=== PATIENT | male | born 1960 | race Caucasian/White ===

== ENCOUNTER 2019-10-03 14:09 | Emergency (ER) | payer OTHER, BC ==
[2019-10-03] MEDS ORDERED: Diphtheria,Pertussis(Acell),Tetanus Vaccine 0.5 ML SDV IM ONE (15:24)
--- NOTE | 2019-10-03 15:35 | CR ---
DATE OF SERVICE: 10/03/2019 CLINICAL DATA: Laceration Left foot: No priors. No acute fracture or dislocation. Minimal osteoarthritic changes involving multiple joints. No lytic or blastic bone lesions. MTDD
--- NOTE | 2019-10-03 15:40 | EDM.PDOC ---
ED HPI GENERAL MEDICAL PROBLEM - General Chief Complaint: Laceration Stated Complaint: LACERATION LEFT FOOT Time Seen by Provider: 10/03/19 14:30 Source of Information: Reports: Patient History Limitations: Reports: No Limitations - History of Present Illness INITIAL COMMENTS - FREE TEXT/NARRATIVE: Pt was chopping wood and cut left great toe with an axe through his shoe. Has l aceration. No loss of function or sensation Onset: Today Onset Date: 10/03/19 Onset Time: 13:00 Duration: Hour(s): (2 hrs) Location: Reports: Lower Extremity, Left Quality: Reports: Throbbing Improves with: Reports: Rest Worsens with: Reports: Movement Associated Symptoms: Reports: No Other Symptoms - Related Data Allergies Allergy/AdvReac Type Severity Reaction Status Date / Time No Known Allergies Allergy Verified 03/09/14 15:08 Home Meds: Home Meds Ciprofloxacin HCl [Cipro] 500 mg PO BID 10 Days #20 tablet 10/03/19 [Rx] Review of Systems - Review of Systems Review Of Systems: See Below Constitutional: Reports: No Symptoms Eyes: Reports: No Symptoms Ears: Reports: No Symptoms Nose: Reports: No Symptoms Respiratory: Reports: No Symptoms Cardiovascular: Reports: No Symptoms GI/Abdominal: Reports: No Symptoms Musculoskeletal: Reports: Foot Pain Skin: Reports: Other (lateration to medial aspect of his great toe) Neurological: Reports: No Symptoms Psychiatric: Reports: No Symptoms ED EXAM, GENERAL - Physical Exam Exam: See Below Exam Limited By: No Limitations General Appearance: Alert, WD/WN, No Apparent Distress Nose: Normal Inspection Throat/Mouth: Normal Inspection Head: Atraumatic Neck: Normal Inspection, Supple, Non-Tender, Full Range of Motion Respiratory/Chest: No Respiratory Distress, Lungs Clear, Normal Breath Sounds Cardiovascular: Normal Peripheral Pulses, Regular Rate, Rhythm Extremities: Other (Left great toe medial aspect 4 cm laceration, no tendon laceration. Full ROM, good sensation) Skin Exam: Wound/Incision (4 cm left medial great toe laceration) ED TRAUMA EXTREMITY PROCEDURES - Laceration/Wound Repair Left Lower Toe - Great Lac/Wound Length In cm: 4 Appearance: Subcutaneous Distal NVT: Neuro & Vascular Intact, No Tendon Injury Anesthetic Type: Local Local Anesthesia - Lidocaine (Xylocaine): 1% Plain Local Anesthetic Volume: 4cc Skin Prep: Chlorhexidine (Hibiciens) Saline Irrigation (cc's): 100 Exploration/Debridement/Repair: Wound Explored, In a Bloodless Field, Explored to Base Suture Size: 3-0 # of Sutures: 7 Suture Type: Nylon, Interrupted Course - Orders/Labs/Meds Orders: Active Orders 24 hr Category Date Time Status Vaccines to be Administered [RC] PER UNIT ROUTINE Care 10/03/19 15:25 Active Foot Comp Min 3V Lt [CR] Stat Exams 10/03/19 14:31 Taken Meds: Medications Discontinued Medications Generic Name Dose Route Start Last Admin Trade Name Chad PRN Reason Stop Dose Admin Diphtheria/Tetanus/Acell Pertussis 0.5 ml 10/03/19 15:24 Boostrix IM 10/03/19 15:25 .ONCE ONE Lidocaine HCl 5 ml 10/03/19 15:24 Xylocaine-Mpf 1% INJECT 10/03/19 15:25 ONETIME ONE - Re-Assessments/Exams Free Text/Narrative Re-Assessment/Exam: 10/03/19 15:42 xray obtained, no fx or fb Free Text/Narrative Re-Assessment/Exam: 10/03/19 15:43 Laceration repaired with 3.0 nylon sutures Departure - Departure Time of Disposition: 15:45 Disposition: DC[facility] Condition: Good Clinical Impression: Laceration - Discharge Information *PRESCRIPTION DRUG MONITORING PROGRAM REVIEWED*: Not Applicable *COPY OF PRESCRIPTION DRUG MONITORING REPORT IN PATIENT ENOCH: Not Applicable Instructions: Laceration Care, Adult, [id number] Referrals: PCP,None [Primary Care Provider] - Forms: ED Department Discharge - My Orders Last 24 Hours: My Active Orders 10/03/19 14:31 Foot Comp Min 3V Lt [CR] Stat 10/03/19 15:25 Vaccines to be Administered [RC] PER UNIT ROUTINE - Assessment/Plan Last 24 Hours: My Active Orders 10/03/19 14:31 Foot Comp Min 3V Lt [CR] Stat 10/03/19 15:25 Vaccines to be Administered [RC] PER UNIT ROUTINE
[2019-10-03] MEDS ORDERED: Bacitracin Oint 1 GM U/D Packet TOP ONE (15:45)
== END 2019-10-03 15:53 | disposition home or self-care (01) ==
LOC: LB.ED 14:09
DX: S91.112A Laceration without foreign body of left great toe without damage to nail, initial encounter (principal); Z23 Encounter for immunization; W27.8XXA Contact with other nonpowered hand tool, initial encounter
CPT/HCPCS: 12002; 73630; 90471; 90715; 99283; J2001

== ENCOUNTER 2020-07-26 07:46 | Day surgery (SDC) | payer BC ==
[~2020-07-26 07:46] MED LIST: Metoclopramide 10 MG/2 ML SDV IV PRN; Sodium Chloride 0.9% 1,000 ML IV SCH
[2020-07-26] MEDS ORDERED: Sodium Chloride 0.9% 1,000 ML IV SCH (08:30)
[2020-07-26] MEDS ORDERED: Metoclopramide 10 MG/2 ML SDV IVPUSH SCH (08:30)
[2020-07-26] MEDS ORDERED: Propofol 1,000 MG/100 ML SDV ONE (09:30)
--- NOTE | 2020-07-26 11:54 | OR ---
DATE OF OPERATION: 07/26/2020 SURGEON: Chet Romero MD PREOPERATIVE DIAGNOSIS: Surveillance colonoscopy. POSTOPERATIVE DIAGNOSIS: Surveillance colonoscopy. PROCEDURE: Colonoscopy with attempted polypectomy. ANESTHESIA: MAC. ESTIMATED BLOOD LOSS: Minimal. COMPLICATIONS: None. INDICATION FOR THE PROCEDURE: The patient is a 60-year-old male, here today for surveillance colonoscopy. He did have several polyps on his last scope. Otherwise, denies any change in bowel habits. He was brought to the OR today for a surveillance colonoscopy. DESCRIPTION OF THE PROCEDURE: Informed consent was obtained with the patient. The patient was taken to the operating room and placed on the table in left lateral decubitus position. Monitored anesthesia care was administered. Digital rectal exam performed was normal. Colonoscope was then advanced through the anus and directed toward the cecum. Cecum was reached and identified by appendiceal orifice and ileocecal valve. Colonoscope was then slowly withdrawn. He was noted to have a medium-sized semipedunculated polyp in the transverse colon. Snare polypectomy was attempted, unable to come all the way through the polyp after several attempts. This was aborted. The polyp did appear benign. On the way out, a few sigmoid diverticula. Rectum was otherwise unremarkable. Colonoscope was then withdrawn. FINDINGS: Unresected transverse colon polyp. We will set up for repeat colonoscopy with polypectomy down at [place] at a later date. GWEN/CAROLINE /[id number]
== END 2020-07-26 10:45 | disposition home or self-care (01) ==
LOC: LB.SDS 07:46
PROVIDERS: ATTEND Surgery
DX: Z12.11 Encounter for screening for malignant neoplasm of colon (principal); K63.5 Polyp of colon; K57.30 Diverticulosis of large intestine without perforation or abscess without bleeding; E11.9 Type 2 diabetes mellitus without complications; Z86.010 Personal history of colon polyps
CPT/HCPCS: 82947; J2704; J7030